=== PATIENT | female | born 1950 | race Caucasian/White ===

== ENCOUNTER 2019-04-30 13:34 | Outpatient (CLI) | payer MEDICARE, OTHER, SELFPAY ==
[2019-04-30 13:50] VITALS: BP 128/74; PULSE 63; RESP 16; TEMP 36.5; O2SAT 93
[2019-04-30 14:39] VITALS: O2SAT 95
--- NOTE | 2019-04-30 14:44 | DI.RAD_ITS ---
SYMPTOMS/DIAGNOSIS: PRIMARY OSTEOARTHRITIS OF RIGHT KNEE PAIN CLINIC RIGHT KNEE: Fluoroscopy Time: 24.2 sec Fluoroscopy was utilized by Dr. Armenta during the performance of a right genicular nerve block. Please refer to the procedure report for complete details.
--- NOTE | 2019-04-30 14:44 | PDOC.PAIN_ITS ---
Pain Clinic Procedure Note Current Active Problems Problem Status Onset Knee osteoarthritis RIGHT GENICULAR NERVE BLOCK Date of Service: April 30, 2019 Patient: Kenia Crump Provider: Gio Armenta DO, MPH COMMENTS: Pre-procedure VAS to the RIGHT knee is 3/10. Kenia Crump [facility] RIGHT genicular nerve blocks. Kenia was interviewed and the medical record reviewed. There were no medical, pharmacologic, radiographic or other structural contraindications to attempting fluoroscopically guided RIGHT genicular nerve block. Risks and potential side effects as well as potential benefit of the procedure were reviewed with Kenia , and HER voiced concerns were addressed. After I believed that the patient was completely informed, the printed consent form was signed. Standard time-out procedure was performed. Kenia was placed in the supine position on the fluoroscopy table and automated blood pressure cuff and pulse oximeter applied. The skin entry points for approaching RIGHT superolateral genicular nerve, the superomedial genicular nerve and the inferomedial genicular was identified under the most advantageous fluoroscopic view and marked. Following thorough Chlorhexadine preparation of the skin and draping, 1% lidocaine infiltration of the skin entry point and subcutaneous tissues was accomplished using a 1.5 25G needle. Next, the 3.5 25G spinal needle was advanced to os at the location of the specific nerve root using fluoroscopic guidance. Next, 1 cc of 1% Lidocaine was injected at each site. The needles were removed without difficulty. Amys vital signs were stable throughout the procedure and were as recorded in the docflowsheet by the nursing staff. If given, dosages of intravenous drugs for anxiolysis and analgesia were documented in MAR. Follow up plans and appointments were discussed with the [facility] . Post procedure instruction was given as documented in nursing documentation and having met discharge criteria, Kenia was [facility] from the [facility]. COMMENTS: No complications. Post-procedure VAS to the RIGHT knee is 1/10. The patient will keep track of her RIGHT knee pain over the next four hours. If Kenia has sufficient pain relief, Kenia will be a candidate for radiofrequency ablation at the same nerves. Wyatt WJ1, Charlie SJ, Nitesh TrotterG, Jose TrotterG, Edgardo MARTINS, Deonna PH, Pablo JW. Radiofrequency treatment relieves chronic knee osteoarthritis pain: a double-blind randomized controlled trial. Pain. 2010;152(3):481-7. doi: 10.1016/j.pain.2010.09.029. Nidhi S1, Shane ON2, Jessica Y3, ?zl?opal P2, Justino U1, Shamar ?m?rl? I. Which one is more effective for the clinical treatment of chronic pain in knee osteoarthritis: radiofrequency neurotomy of the genicular nerves or intra- articular injection? Int J Rheum Dis. 2016 May 20. F/U with our office by phone with the 1-4 hour post-procedure pain scores for the right knee. I personally performed this entire procedure. Gio Armenta DO, MPH Attending Physician
[2019-04-30] MEDS: Omnipaque 240 MG/ML 50 ML BTL IJ (14:46)
[2019-04-30] MEDS: Bupivacaine 0.5% Pres-Free 10 ML VIAL IJ (14:46)
== END 2019-04-30 13:54 ==
PROVIDERS: Visit Provider Preventive Medicine Occupational Medicine
DX: M17.11 Unilateral primary osteoarthritis, right knee (principal)
CPT/HCPCS: 64640 ×3; 77002; Q9967